=== PATIENT | female | born 1975 | race Caucasian/White ===

== ENCOUNTER 2019-12-31 20:18 | Emergency (ER) | payer OTHER ==
[~2019-12-31] VITALS: Ht 157.5 cm; Wt 90.9 kg
[2019-12-31 20:20] VITALS: Ht 157.5 cm; Wt 90.9 kg
[2019-12-31] MEDS ORDERED: ALBUTEROL SULF8.5 GM INH (20:22)
[2019-12-31] MEDS ORDERED: [UNRECOGNIZED DRUG - REMARK] (20:22)
[2019-12-31 21:13] LABS: BASOPHILS 0.2 % (0-2); EOSINOPHILS 1.9 % (0-7); HEMATOCRIT 42.1 % (36.0-48.0); HEMOGLOBIN 14.2 g/dL (12-16); IMMATURE GRANULOCYTES 0.2 % (0-5); LYMPHOCYTES 40.3 % (15-50); MCH 31.8 pg (26.0-34.0); MCHC 33.7 g/dL (31.0-37.0); MCV 94.4 fL (80.0-100.0); MEAN PLATELET VOLUME 10.2 fL (7.4-10.4); MONOCYTES 4.8 % (2-11); NEUTROPHILS 52.6 % (40-80); PLATELET COUNT 331 10x3/uL (130-400); RBC 4.46 10x6/uL (4.00-5.40); RDW 14.6 % (11.5-14.5); WBC 12.2 10x3/uL (4.8-10.8)
[2019-12-31 21:23] LABS: APTT 33.5 SECONDS (22.8-39.4); INR 1.07 (0.85-1.17); PROTIME 13.8 SECONDS (11.6-15.0)
[2019-12-31 21:39] LABS: ALBUMIN 3.4 g/dL (3.4-5.0); ALKALINE PHOSPHATASE 105 U/L (30-120); ALT (SGPT) 30 U/L (10-68); BILIRUBIN - TOTAL 0.18 mg/dL (0.2-1.3); CALC OSMOLALITY 280 mosm/kg (275-300); CALCIUM 8.6 mg/dL (8.5-10.1); CARBON DIOXIDE 22.4 mmol/L (21.0-32.0); CHLORIDE - SERUM 103 mmol/L (98-107); CREATINE KINASE 118 UL (21-215); CREATININE - SERUM 1.4 mg/dL (0.6-1.3); GLUCOSE 88 mg/dL (74-106); PRO BNP 195 pg/mL (0-125); PROTEIN - SERUM 7.2 g/dL (6.4-8.2); SODIUM 141 mmol/L (136-145); UREA NITROGEN 14 mg/dL (7-18); eGFR NON AFRICAN AMERICAN 43 mL/min (90-120)
[2019-12-31 21:44] LABS: TROPONIN-I < 0.017 ng/mL (0.000-0.060)
[2019-12-31 21:45] LABS: POTASSIUM - SERUM 2.8 mmol/L (3.5-5.1)
[2019-12-31] MEDS ORDERED: STERAPRED DS 1010 MG PO (22:14)
[2019-12-31] MEDS ORDERED: MUCINEX DM ER1 EAC1 PO (22:16)
[2019-12-31 23:50] VITALS: BP 115/64
== END 2019-12-31 23:50 | disposition home or self-care (01) ==
LOC: D.ER 20:18
PROVIDERS: Emergency Medicine
DX: J45.901 Unspecified asthma with (acute) exacerbation (principal); E87.6 Hypokalemia; Z72.0 Tobacco use